=== PATIENT | male | born 2000 | race Caucasian/White ===

== ENCOUNTER 2020-01-15 18:25 | Outpatient (REF) | payer BC, SELFPAY ==
[2020-01-17 23:25] LABS: SARS-CoV-2 RNA Undetected (Undetected)
== END 2020-01-15 18:45 ==
LOC: LBN 18:25
PROVIDERS: PCP Pediatrics; Visit Provider Nurse Practitioner Pediatrics
DX: R50.9 Fever, unspecified (principal); J02.9 Acute pharyngitis, unspecified
CPT/HCPCS: U0003